=== PATIENT | female | born 1990 | race Caucasian/White ===

== ENCOUNTER → 2023-09-02 13:11 | Outpatient (REF) | payer OTHER, SELFPAY | LOC: RAD 13:11 | PROVIDERS: ATTENDING PHYSICIAN Obstetrics & Gynecology Reproductive Endocrinology; FAMILY PHYSICIAN Internal Medicine | DX: Z31.41 Encounter for fertility testing (principal) | CPT/HCPCS: 58340; 74740 ==

== ENCOUNTER → 2023-09-04 11:15 | Outpatient (REF) | payer OTHER, SELFPAY | LOC: RAD 11:15 | PROVIDERS: ATTENDING PHYSICIAN Obstetrics & Gynecology Reproductive Endocrinology | DX: Z31.41 Encounter for fertility testing (principal) | CPT/HCPCS: 58340; 76830; 76831; 76856 ==